=== PATIENT | female | born 1985 | race Caucasian/White ===

== ENCOUNTER 2019-08-02 05:05 | Inpatient (IN) ==
[2019-08-02 05:20] VITALS: BMI 35.9
[2019-08-02] MEDS ORDERED: D5LR 1L W PITOCIN 10 UNITS/L 10 UNITS/1,000 ML BAG IV PRN (06:05)
[2019-08-02] MEDS ORDERED: PITOCIN IVP ONE (06:05)
[2019-08-02] MEDS ORDERED: NUBAIN INJ 200 MG VIAL MULTIDOSE IVP PRN (06:05)
[2019-08-02] MEDS ORDERED: PHENERGAN INJ 25 MG IM PRN ×3 (06:05→13:36)
[2019-08-02] MEDS ORDERED: REGLAN INJ 10 MG VIAL IVP PRN ×2 (06:05→13:36)
[2019-08-02] MEDS ORDERED: LR 1000 ML IV 1,000 ML IV ONE ×2 (06:12→12:31)
[2019-08-02] MEDS ORDERED: NS 100 ML IV 100 ML IV ONE ×2 (06:12→10:17)
[2019-08-02] MEDS ORDERED: D5 1/2 NS 1L W PITOCIN 20 UNITS/L 20 UNITS/1,000 ML BAG IV ONE (06:13)
[2019-08-02] MEDS ORDERED: AMPICILLIN VIAL 2 GRAM ONE (06:13)
[2019-08-02] MEDS ORDERED: NAROPIN EPIDURAL 0.2% + FENTANYL 90MCG 60 ML EPI ONE (06:13)
[2019-08-02 06:36] LABS: BASOPHILS # (AUTO) 0.1 X10^3/uL (0.0-0.1); BASOPHILS % (AUTO) 0.6 % (0.2-1.0); EOSINOPHILS % (AUTO) 0.5 % (0.9-2.9); HEMATOCRIT 34.8 % (36.0-47.0); HEMOGLOBIN 11.6 g/dL (12.0-16.0); LYMPHOCYTES # (AUTO) 2.1 X10^3/uL (1.3-2.9); LYMPHOCYTES % (AUTO) 22.5 % (21.0-51.0); MEAN CORPUSCULAR HEMOGLOBIN 26.1 pg (27.0-34.0); MEAN CORPUSCULAR HGB CONC 33.3 g/dL (33.0-35.0); MEAN CORPUSCULAR VOLUME 78.3 fL (80.0-100.0); MEAN PLATELET VOLUME 8.9 fL (7.4-11.0); MONOCYTES # (AUTO) 0.5 x10^3/uL (0.3-0.8); MONOCYTES % (AUTO) 5.2 % (0.0-13.0); NEUTROPHILS # (AUTO) 6.7 x10^3/uL (2.2-4.8); NEUTROPHILS % (AUTO) 71.2 % (42.0-75.0); PLATELET COUNT 198 X10^3/uL (150.0-450.0); RED BLOOD COUNT 4.45 X10^6/uL (3.5-5.4); RED CELL DISTRIBUTION WIDTH 13.1 % (11.6-16.5); WHITE BLOOD COUNT 9.4 X10^3/uL (3.6-10.0)
[2019-08-02 06:50] LABS: BLOOD UREA NITROGEN 6 mg/dL (7-18); CALCIUM 8.6 mg/dL (8.5-10.1); CARBON DIOXIDE 20.6 mmol/L (21-32); CHLORIDE 103 mmol/L (98-107); CREATININE 0.52 mg/dL (0.55-1.02); SODIUM 136 mmol/L (136-145); eGFR NON BLACK RACES > 60 (>60)
--- NOTE | 2019-08-02 06:58 | DR.OB ---
OB Quick Note - Assessment/Plan Assessment/Plan: L&D 08/02/19 at 6:50am S-No complaint except CTX. O-Afebrile,VSS DCN=912 with good LTV, +accel, no decel. CTX=q 2-3 min., strong by palpation CVX=3cm/50%/-1/VTX AROM with clear fluid. IUP and FSE placed. A-IUP at 37 3/7 weeks in active labor Multiparity P-Begin pitocin induction Anticipate with PP BTL as desired
[2019-08-02] MEDS ORDERED: AMPICILLIN VIAL 2 GRAM 2 G in NS 100 ML IV + SPIKE MINIBAG* 100 ML IV SCH (07:00)
[2019-08-02] MEDS ORDERED: D5 1/2 NS 1000 ML 1,000 ML IV SCH (07:00)
[2019-08-02] MEDS ORDERED: FENTANYL INJ 100 mcg ONE (07:36)
[2019-08-02] MEDS ORDERED: ZOFRAN INJ 4 MG VIAL ONE (08:56)
[2019-08-02] MEDS ORDERED: XYLOCAINE 2% and EPINEPHRINE 1:100,000 ONE (08:56)
[2019-08-02] MEDS ORDERED: AMPICILLIN VIAL 1 GRAM 1 G in NS 50 ML IV + SPIKE MINIBAG* 50 ML IV SCH (10:07)
[2019-08-02] MEDS ORDERED: AMPICILLIN VIAL 1 GRAM ONE (10:17)
[2019-08-02] MEDS ORDERED: VERSED ONE (10:34)
[2019-08-02] MEDS ORDERED: MARCAINE 0.25% INJ ONE (11:26)
--- NOTE | 2019-08-02 12:23 | DR.OB ---
OB Quick Note - Assessment/Plan Assessment/Plan: Delivery Note DIRECTOR OF PHYSICIAN PRACTICES 12:04pm 08/02/19 Patient complete and pushing. Head delivered over intact perineum. Nose and mouth bulb suctioned. No nuchal cord. Body delivered over intact perineum. Cord clamped x 2 and cut. Infant handed to attendant. Cord sent for gases. No CVX / vaginal / perineal tears. Viable male , VTX/OA, wt=6'11" and 9/9, stable to NBN. Mother stable to RR. EXF=216mt.
[2019-08-02] MEDS ORDERED: ANCEF 1 GRAM IV PREMIX* 1 G/50 ML BAG IV ONE (12:54)
[2019-08-02] MEDS ORDERED: ZOFRAN INJ 4 MG VIAL IVP PRN (13:36)
[2019-08-02] MEDS ORDERED: BENADRYL INJ 50 MG VIAL IVP PRN (13:36)
[2019-08-02] MEDS ORDERED: DILAUDID INJ IVP PRN (13:36)
[2019-08-02] MEDS ORDERED: MILK OF MAGNESIA PO PRN ×2 (15:13)
[2019-08-02] MEDS ORDERED: DERMOPLAST SPRAY TOP PRN (15:13)
[2019-08-02] MEDS ORDERED: ADACEL or BOOSTRIX TDaP VACCINE IM ONE (15:13)
[2019-08-02] MEDS ORDERED: AMBIEN PO PRN ×2 (15:13)
[2019-08-02] MEDS: D5 1/2 NS 1000 ML 1,000 ML with PITOCIN 20 UNITS IV SCH ×4 (15:20→21:04)
[2019-08-02] MEDS: MYLICON TAB 80 MG CHEW PO PRN ×2 (15:30→23:18)
[2019-08-02] MEDS: PERCOCET TAB 5/325 MG PO PRN ×2 (15:31→20:00)
[2019-08-02] MEDS: MOTRIN TAB 800 MG PO PRN (18:03)
[2019-08-03] MEDS: MOTRIN TAB 800 MG PO PRN ×2 (02:00→11:58)
[2019-08-03] MEDS: PERCOCET TAB 5/325 MG PO PRN ×4 (05:07→13:50)
[2019-08-03 05:25] LABS: HEMATOCRIT 34.1 % (36.0-47.0); HEMOGLOBIN 11.3 g/dL (12.0-16.0)
[2019-08-03] MEDS: D5 1/2 NS 1000 ML 1,000 ML with PITOCIN 20 UNITS IV SCH ×2 (05:31)
[2019-08-03] MEDS ORDERED: PROTONIX TAB 40 MG PO SCH (09:00)
[2019-08-03] MEDS ORDERED: PRENATAL PLUS PO SCH (09:00)
[2019-08-03] MEDS ORDERED: ADACEL or BOOSTRIX TDaP VACCINE IM ONE (11:49)
[2019-08-03 13:39] VITALS: BP 110/72
== END 2019-08-03 13:55 | disposition home or self-care (01) | DRG 798 ==
LOC: ER 05:06 → LD 06:01 → MED/SURG 15:11
PROVIDERS: ADMIT Specialist; ATTEND Specialist
DX: Z37.0 Single live birth; Z3A.37 37 weeks gestation of pregnancy; O99.613 Diseases of the digestive system complicating pregnancy, third trimester; Z23 Encounter for immunization; B95.1 Streptococcus, group B, as the cause of diseases classified elsewhere; O99.824 Streptococcus B carrier state complicating childbirth; Z30.2 Encounter for sterilization
CPT/HCPCS: 36415; 59409; 80048; 85014; 85018; 85025; 86592; 86850; 86900; 86901; 90715; 99284; A4216; A4222; J0290; J0690; J2001; J2250; J2405; J3010; J7050; J7120; S5010